=== PATIENT | female | born 1965 | race Caucasian/White ===

== ENCOUNTER → 2017-02-22 | Outpatient (CLI) | payer BC, OTHER ==
[~2017-02-22] MED LIST: IOPAMIDOL (ISOVUE-300) 100 ML BTL ONE
== END ==
LOC: FIMAGING 13:01
PROVIDERS: ATTEND Internal Medicine
DX: D18.09 Hemangioma of other sites (principal); K59.00 Constipation, unspecified; R93.8 Abnormal findings on diagnostic imaging of other specified body structures
CPT/HCPCS: G0202; Q9967

== ENCOUNTER → 2018-01-28 | Outpatient (CLI) | payer OTHER | LOC: FIMAGING 14:15 | PROVIDERS: ATTEND Internal Medicine | DX: Z13.820 Encounter for screening for osteoporosis (principal); M85.89 Other specified disorders of bone density and structure, multiple sites ==

== ENCOUNTER → 2018-01-30 | Outpatient (CLI) | payer OTHER | LOC: FIMAGING 14:45 | PROVIDERS: ATTEND Internal Medicine | DX: N63.11 Unspecified lump in the right breast, upper outer quadrant (principal) ==

== ENCOUNTER 2018-06-04 14:31 | Observation (INO) | payer OTHER ==
[2018-06-04] MEDS ORDERED: PROMETHAZINE HCL 25 MG/ML INJ IVP ONE (14:51)
[2018-06-04] MEDS ORDERED: NS 1,000 ML IV ONE ×3 (14:51→22:58)
[2018-06-04] MEDS ORDERED: DEXAMETHASONE 10 MG/ML VIAL IVP ONE (14:51)
[2018-06-04] MEDS ORDERED: KETOROLAC 15 MG/1 ML SDV IVP ONE (14:51)
--- NOTE | 2018-06-04 14:53 | EDPHY ---
H & P Stated Complaint: N/V migraine - Personal History LMP (Females 10-55): Post Menopausal Current Tetanus/Diphtheria Vaccine: Yes Tetanus Vaccine Date: < 10 years - Medical/Surgical History Hx Asthma: No Hx Chronic Respiratory Disease: No Hx Diabetes: No Hx Cardiac Disease: No Hx Renal Disease: No Hx Cirrhosis: No Hx Alcoholism: No Hx HIV/AIDS: No Hx Splenectomy or Spleen Trauma: No Other PMH: hypothyroid, abdominal sx as a baby with partial removal of intestines, kidney CA 2000. breast ca - Social History Smoking Status: Never smoked Time Seen by Provider: 06/04/18 14:40 HPI/ROS: Chief Complaint: Headache, nausea, vomiting HPI: 53-year-old woman who is approximately 1 week status post bilateral mastectomy with reconstruction for breast cancer. Patient is presenting with mild frontal headache with nausea and vomiting. She has not been able to keep any medications down. She denies any fevers or chills. She had a similar headache about a month ago. At that time she had a noncontrast MRI which showed an abnormal frontal lesion. She has since had an MRI at [facility] but has not yet received those results. On her prior visit she was 2 days status post receiving chemotherapy agent which she has not had since. Headache is an 8/10. No numbness or weakness. She has not been able to keep any medications down. She has not been taking narcotics for her mastectomies. She states her pain is well controlled at her surgical sites. No redness or abnormal drainage. ROS: 10 systems were reviewed and were negative except those elements noted in the HPI. PMH: Breast cancer, hypothyroidism, renal cell carcinoma Social History: No smoking, no alcohol, no recreational drug use Family History: non-contributory Physical Exam: Gen: Awake, Alert, No Distress HEENT: Nose: no rhinorrhea Eyes: PERRLA, EOMI Mouth: Moist mucosa Neck: Supple, no JVD Chest: Bilateral mastectomy sites are clean dry and intact. There is no erythema or warmth. ELYSIA drains are intact in draining appropriately., lungs clear to auscultation Heart: S1, S2 normal, no murmur Abd: Soft, non-tender, no guarding Back: no CVA tenderness, no midline tenderness Ext: no edema, non-tender Skin: no rash Neuro: CN II-XII intact, Sensation grossly intact, Strength 5/5 in bilateral upper and lower extremities (Osiel Shay) Constitutional: Initial Vital Signs Temperature (C) 36.7 C 06/04/18 14:34 Heart Rate 71 06/04/18 14:34 Respiratory Rate 18 06/04/18 14:34 Blood Pressure 143/106 H 06/04/18 14:34 O2 Sat (%) 96 06/04/18 14:34 O2 Delivery Mode Room Air Allergies/Adverse Reactions: No Known Allergies Allergy (Verified 06/04/18 14:36) Home Medications: Medication Instructions Recorded Levothyroxine [Synthroid 137 mcg 137 mcg PO DAILY06 11/05/15 (*)] Multivitamins [Multivitamin (*)] 1 each PO DAILY 05/05/18 Acetaminophen [Tylenol 325mg (*)] 650 mg PO Q4 PRN tab 05/06/18 Diazepam [Valium 5 MG (*)] 5 mg PO DAILY PRN 06/04/18 Eszopiclone [Lunesta] 3 mg PO HS 06/04/18 Ondansetron Odt [Zofran Odt 4 mg 4 mg PO Q4 PRN #6 tab 06/04/18 (*)] oxyCODONE IR [Oxycodone Ir (*)] 5 - 10 mg PO Q4HRS PRN 06/04/18 Medical Decision Making ED Course/Re-evaluation: 53-year-old woman with recent mastectomy is presenting with headache nausea vomiting. I have discussed with Dr. Reynolds, oncologist on-call for [facility]. She has reviewed the MRI. Lesion is a small less than 1 cm lesion which represents either demyelinating lesion or sequela vasculitis. Does not appear to be related to metastasis. She thinks her symptoms likely viral etiology does not feel there is acute neurological or postoperative complication I agree. Plan will be to continue to hydrate in give analgesia. Patient signed out to Dr. Miguel pending improvement in symptoms and discharge. ( Osiel Shay) 4pm: sleeping comfortably, will reassess. 5:00 p.m.-quite nauseated, continues to have a headache. Zofran IV given. Discussed with patient admission versus continued observation in the emergency department. Will admit the patient for observation, given prolonged vomiting and headache, unrelieved with medications so far. Multiple etiologies of recurrent headache considered. Given recent MRI's, repeat neuro imaging is not indicated. In addition, there is no evidence of meningitis, with no recent illness, normal white blood cell count and no leukocytosis. Lumbar puncture is not indicated. The hospitalist service was consulted for admission. (Mayela Miguel) Differential Diagnosis: Headache including but not limited to subarachnoid hemorrhage, migraine headache , tension headache and infectious causes such as meningitis, pharyngitis and sinusitis. (Mayela Miguel) - Data Points Laboratory Results: Laboratory Results 06/04/18 15:36 06/04/18 15:36 06/04/18 06/04/18 15:36 15:36 WBC 7.87 10^3/uL 10^3/uL (3.80-9.50) RBC 4.13 10^6/uL L 10^6/uL (4.18-5.33) Hgb 12.6 g/dL g/dL (12.6-16.3) Hct 37.1 % L % (38.0-47.0) MCV 89.8 fL fL (81.5-99.8) MCH 30.5 pg pg (27.9-34.1) MCHC 34.0 g/dL g/dL (32.4-36.7) RDW 12.0 % % (11.5-15.2) Plt Count 239 10^3/uL 10^3/uL (150-400) MPV 8.6 fL L fL (8.7-11.7) Neut % (Auto) 83.7 % H % (39.3-74.2) Lymph % (Auto) 8.3 % L % (15.0-45.0) [place] % (Auto) 4.2 % L % (4.5-13.0) Eos % (Auto) 2.9 % % (0.6-7.6) Baso % (Auto) 0.6 % % (0.3-1.7) Nucleat RBC Rel Count 0.0 % % (0.0-0.2) Absolute Neuts (auto) 6.59 10^3/uL H 10^3/uL (1.70-6.50) Absolute Lymphs (auto) 0.65 10^3/uL L 10^3/uL (1.00-3.00) Absolute Monos (auto) 0.33 10^3/uL 10^3/uL (0.30-0.80) Absolute Eos (auto) 0.23 10^3/uL 10^3/uL (0.03-0.40) Absolute Basos (auto) 0.05 10^3/uL 10^3/uL (0.02-0.10) Absolute Nucleated RBC 0.00 10^3/uL 10^3/uL (0-0.01) Immature Gran % 0.3 % % (0.0-1.1) Immature Gran # 0.02 10^3/uL 10^3/uL (0.00-0.10) Sodium 139 mEq/L mEq/L (135-145) Potassium 3.2 mEq/L L mEq/L (3.5-5.2) Chloride 105 mEq/L mEq/L (97-110) Carbon Dioxide 27 mEq/l mEq/l (22-31) Anion Gap 7 mEq/L mEq/L (6-14) BUN 13 mg/dL mg/dL (7-23) Creatinine 0.6 mg/dL mg/dL (0.6-1.0) Estimated GFR > 60 Glucose 108 mg/dL H mg/dL (70-100) Calcium 8.8 mg/dL mg/dL (8.5-10.4) Medications Given: Sodium Chloride (Ns) 1,000 mls @ 150 mls/hr IV CONT YEFRI Stop: 12/01/18 17:59 Last Admin: 06/04/18 20:11 Dose: 1,000 mls Ketorolac Tromethamine (Toradol) 30 mg IVP Q6HRS PRN PRN Reason: Pain, Moderate Stop: 06/09/18 19:49 Last Admin: 06/04/18 20:21 Dose: 30 mg Ondansetron HCl (Zofran) 4 mg IVP Q4HRS PRN PRN Reason: Nausea/Vomiting, Can't Take PO Stop: 12/01/18 17:49 Last Admin: 06/04/18 20:21 Dose: 4 mg Tramadol HCl (Ultram) 50 mg PO Q6HRS PRN PRN Reason: Pain, Moderate Able to Take PO Stop: 12/01/18 19:51 Last Admin: 06/04/18 20:21 Dose: 50 mg Zolpidem Tartrate (Ambien) 5 mg PO HS YEFRI Stop: 12/01/18 20:59 Last Admin: 06/04/18 21:04 Dose: Not Given Discontinued Medications Dexamethasone (Decadron Injection) 10 mg IVP EDNOW ONE Stop: 06/04/18 14:52 Last Admin: 06/04/18 15:08 Dose: 10 mg Diphenhydramine HCl (Benadryl Injection) 12.5 mg IVP EDNOW ONE Stop: 06/04/18 17:00 Last Admin: 06/04/18 20:33 Dose: Not Given Sodium Chloride (Ns) 1,000 mls @ 0 mls/hr IV ONCE ONE; Wide Open PRN Reason: Protocol Stop: 06/04/18 14:52 Last Admin: 06/04/18 15:07 Dose: 1,000 mls Sodium Chloride (Ns) 1,000 mls @ 0 mls/hr IV ONCE ONE; Wide Open PRN Reason: Protocol Stop: 06/04/18 17:36 Last Admin: 06/04/18 17:40 Dose: 1,000 mls Ketorolac Tromethamine (Toradol) 15 mg IVP EDNOW ONE Stop: 06/04/18 14:52 Last Admin: 06/04/18 15:08 Dose: 15 mg Metoclopramide HCl (Reglan Injection) 10 mg IVP EDNOW ONE Stop: 06/04/18 17:00 Last Admin: 06/04/18 20:33 Dose: Not Given Ondansetron HCl (Zofran) 4 mg IVP EDNOW ONE Stop: 06/04/18 17:36 Last Admin: 06/04/18 17:40 Dose: 4 mg Promethazine HCl (Phenergan) 12.5 mg IVP ONCE ONE Stop: 06/04/18 14:52 Last Admin: 06/04/18 15:08 Dose: 12.5 mg Departure - Departure Disposition: [facility] Acute Clinical Impression: Acute headache Qualifiers: Headache type: unspecified Intractability: not intractable Qualified Code(s): R51 - Headache Condition: Good
[2018-06-04 15:55] LABS: PLATELET COUNT 239 10^3/uL (150-400)
[2018-06-04] MEDS ORDERED: METOCLOPRAMIDE 10 MG/2 ML VIAL IVP ONE (16:59)
[2018-06-04] MEDS ORDERED: ONDANSETRON 4 MG/2 ML VIAL IVP ONE (17:35)
[2018-06-04] MEDS ORDERED: ONDANSETRON 4 MG/2 ML VIAL ONE (17:35)
[2018-06-04] MEDS ORDERED: ONDANSETRON 4 MG/2 ML VIAL IVP PRN (17:50)
[2018-06-04] MEDS ORDERED: ACETAMINOPHEN 325 MG TAB PO PRN (17:50)
[2018-06-04] MEDS ORDERED: PROMETHAZINE HCL 25 MG/ML INJ IVP PRN (17:50)
[2018-06-04] MEDS ORDERED: ONDANSETRON DISINTEGRATING 4 MG TAB PO PRN (17:50)
--- NOTE | 2018-06-04 18:15 | PDGENHP ---
History and Physical - Chief Complaint Headache, Nausea, vomiting - History of Present Illness 53 y/o female presents to the emergency room experiencing a migraine, nausea, and vomiting. She woke up this morning with the headache and since then, has not been able to keep any food or water down. Denies hematemesis. Denies chest pains, SOB, dysuria, diarrhea. She is s/p 1 week bilateral mastectomy. She reports experiencing similar symptoms one month ago and was admitted to the hospital. It was thought at the time to be related to her chemotherapy treatment. She does have history of recurrent SBOs but typically these feel very different from this as she will have abdominal distention and pain which are currently not present. Her last normal bowel movement was yesterday. A month prior, she had a head MRI which showed an abnormal frontal lesion. She had a recent repeat MRI at [facility]. Dr. Shay spoke to the on-call oncologist, Dr. Leon about the results which were: a lesion less than 1cm which represents either demyelinating lesion or sequela vasculitis. It does not appear to be r/t metastasis. Her symptoms could be viral etiology. She is being admitted for observation and supportive management. Past Medical/Surgical History 1. Recent bilateral mastectomy 2. Breast cancer 3. Left sided renal carcinoma, s/p partial nephrectomy 4. Hypothyroidism 5. IBS 6. Insomnia 7. 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 Denies alcohol or illicit drugs. No alcohol. Vital Signs 146/93 75 HR 15 Respirations 36.7c 93% RA History Information - Allergies/Home Medication List Allergies/Adverse Reactions: No Known Allergies Allergy (Verified 06/04/18 14:36) Home Medications: Levothyroxine [Synthroid 137 mcg (*)] 137 mcg PO DAILY06 11/05/15 [Last Taken ] Multivitamins [Multivitamin (*)] 1 each PO DAILY 05/05/18 [Last Taken 06/03/18] Diazepam [Valium 5 MG (*)] 5 mg PO DAILY PRN 06/04/18 [Last Taken 05/31/18] Eszopiclone [Lunesta] 3 mg PO HS 06/04/18 [Last Taken 06/03/18] oxyCODONE IR [Oxycodone Ir (*)] 5 - 10 mg PO Q4HRS PRN 06/04/18 [Last Taken ] I have personally reviewed and updated: family history, medical history, social history, surgical history Past Medical History: See HPI List - Surgical History Additional surgical history: See HPI list - Family History Additional family history: Hypertension, cataracts, breast cancer - Social History Smoking Status: Never smoked Alcohol Use: None Drug Use: None Review of Systems Review of Systems: ROS: 10pt was reviewed & negative except for what was stated in HPI & below Constitutional: Reports: malaise EENMT: Reports: no symptoms Cardiac: Reports: no symptoms Respiratory: Reports: no symptoms Gastrointestinal: Reports: vomitting, nausea Genitourinary: Reports: no symptoms Muscolosketal: Reports: no symptoms Skin: Reports: no symptoms Neurological: Reports: headache Hematologic/Lymphatic: Reports: no symptoms Immunologic/Allergy: Reports: no symptoms Physical Exam Physical Exam: Lab data reviewed Temp Pulse Resp BP Pulse Ox 36.7 C 75 15 146/93 H 93 06/04/18 14:34 06/04/18 17:45 06/04/18 17:45 06/04/18 17:45 06/04/18 17:45 Constitutional: uncomfortable, other (Pale-appearing female, uncomfortable) Eyes: PERRL, anicteric sclera, EOMI Ears, Nose, Mouth, Throat: hearing normal, ears appear normal, no oral mucosal ulcers, dry mucous membranes Cardiovascular: regular rate and rhythym, no murmur, rub, or gallop, No edema Peripheral Pulses: 2+: dorsalis-pedis (R) (Radial 2+), dorsalis-pedis (L) ( Radial 2+) Respiratory: no respiratory distress, no rales or rhonchi, clear to auscultation Gastrointestinal: normoactive bowel sounds, soft, non-tender abdomen, no palpable masses Genitourinary: no bladder fullness, no bladder tenderness Skin: warm, normal color, no rashes or abrasions, no fluctuance, no induration, No mottled Musculoskeletal: full muscle strength, no muscle tenderness, normal joint ROM, no joint effusions Neurologic: AAOx3, sensation intact bilaterally, CN II-XII Intact Psychiatric: interacting appropriately, not anxious, not encephalopathic, thought process linear Lymph, Heme, Immunologic: no cervical LAD, no supraclavicular LAD Lab Data & Imaging Review 06/04/18 15:36 06/04/18 15:36 WBC 7.87 10^3/uL (3.80-9.50) 06/04/18 15:36 RBC 4.13 10^6/uL (4.18-5.33) L 06/04/18 15:36 Hgb 12.6 g/dL (12.6-16.3) 06/04/18 15:36 Hct 37.1 % (38.0-47.0) L 06/04/18 15:36 MCV 89.8 fL (81.5-99.8) 06/04/18 15:36 MCH 30.5 pg (27.9-34.1) 06/04/18 15:36 MCHC 34.0 g/dL (32.4-36.7) 06/04/18 15:36 RDW 12.0 % (11.5-15.2) 06/04/18 15:36 Plt Count 239 10^3/uL (150-400) 06/04/18 15:36 MPV 8.6 fL (8.7-11.7) L 06/04/18 15:36 Neut % (Auto) 83.7 % (39.3-74.2) H 06/04/18 15:36 Lymph % (Auto) 8.3 % (15.0-45.0) L 06/04/18 15:36 [place] % (Auto) 4.2 % (4.5-13.0) L 06/04/18 15:36 Eos % (Auto) 2.9 % (0.6-7.6) 06/04/18 15:36 Baso % (Auto) 0.6 % (0.3-1.7) 06/04/18 15:36 Nucleat RBC Rel Count 0.0 % (0.0-0.2) 06/04/18 15:36 Absolute Neuts (auto) 6.59 10^3/uL (1.70-6.50) H 06/04/18 15:36 Absolute Lymphs (auto) 0.65 10^3/uL (1.00-3.00) L 06/04/18 15:36 Absolute Monos (auto) 0.33 10^3/uL (0.30-0.80) 06/04/18 15:36 Absolute Eos (auto) 0.23 10^3/uL (0.03-0.40) 06/04/18 15:36 Absolute Basos (auto) 0.05 10^3/uL (0.02-0.10) 06/04/18 15:36 Absolute Nucleated RBC 0.00 10^3/uL (0-0.01) 06/04/18 15:36 Immature Gran % 0.3 % (0.0-1.1) 06/04/18 15:36 Immature Gran # 0.02 10^3/uL (0.00-0.10) 06/04/18 15:36 Sodium 139 mEq/L (135-145) 06/04/18 15:36 Potassium 3.2 mEq/L (3.5-5.2) L 06/04/18 15:36 Chloride 105 mEq/L (97-110) 06/04/18 15:36 Carbon Dioxide 27 mEq/l (22-31) 06/04/18 15:36 Anion Gap 7 mEq/L (6-14) 06/04/18 15:36 BUN 13 mg/dL (7-23) 06/04/18 15:36 Creatinine 0.6 mg/dL (0.6-1.0) 06/04/18 15:36 Estimated GFR > 60 06/04/18 15:36 Glucose 108 mg/dL (70-100) H 06/04/18 15:36 Calcium 8.8 mg/dL (8.5-10.4) 06/04/18 15:36 Assessment & Plan Plan: 1. Acute headache: She had a similar headache a month ago. She had a non- contrast MRI at that time which revealed an abnormal frontal lesion. Since then , she had another MRI at [facility]. Dr. Shay spoke to [facility] oncologist on-call Dr. Reynolds re: MRI results. Lesion is less than 1cm representing either a demyelinating lesion or sequela vasculitis; it does not appear to be r/t metastasis. Most likely viral etiology. We will manage her migraine and her associated symptoms. In the ED, she received Decadron, Benadryl , Toradol, Reglan, and Phenergan. We will do supportive treatment. -Tylenol, Ultram, Toradol, Ativan PRN -Zofran/Phenergan PRN -IV NS 2. Hypokalemia: this is most likely d/t emesis. Potassium protocol initiated. 3. Bilateral mastectomy: currently experiencing no pain or discomfort. Followed at [facility]. Will need chemotherapy and radiation treatments but has not made appointments. Diet: NPO Code: Full VTE ppx: Lovenox, SCDs Dispo: Admit to obs
[2018-06-04] MEDS ORDERED: PROTOCOL POTASSIUM 1 DOSE MISC PRN (18:30)
--- NOTE | 2018-06-04 19:27 | HOSPPROG ---
Hospitalist Progress Note Assessment/Plan: I have personally seen and examined patient. I agree with the assessment and plan as outlined by PACherry, in a separate note. Objective: Vital Signs Temp Pulse Resp BP Pulse Ox 36.7 C 78 16 150/91 H 93 06/04/18 14:34 06/04/18 19:00 06/04/18 19:00 06/04/18 19:00 06/04/18 19:00 ICD10 Worksheet Patient Problems: Problems Problem Status Onset Acute headache Acute Abdominal pain Acute Chemotherapy induced nausea and vomiting Acute Intractable nausea and vomiting Acute Partial small bowel obstruction Acute Side effect of medication Acute
[2018-06-04] MEDS ORDERED: KETOROLAC 30 MG/1 ML SDV IVP PRN (19:50)
[2018-06-04] MEDS ORDERED: LORazepam 2 MG/ML INJ IVP PRN (19:51)
[2018-06-04] MEDS ORDERED: traMADol 50 MG TAB PO PRN (19:52)
[2018-06-04] MEDS: NS 1,000 ML IV SCH ×2 (20:08→20:11)
[2018-06-04] MEDS ORDERED: ZOLPIDEM TARTRATE 5 MG TAB PO SCH (21:00)
[2018-06-04] MEDS ORDERED: POTASSIUM CL 20 MEQ TAB PO ONE (22:32)
[2018-06-04] MEDS ORDERED: ACETAMINOPHEN 500 MG TAB PO ONE (22:58)
[2018-06-04] MEDS ORDERED: ACETAMINOPHEN 500 MG TAB ONE (23:02)
[2018-06-05] MEDS ORDERED: SUMAtriptan 50 MG TAB PO ONE (01:13)
[2018-06-05] MEDS: NS 1,000 ML IV SCH ×2 (01:14→01:26)
[2018-06-05] MEDS ORDERED: LEVOTHYROXINE 137 MCG TAB PO SCH (06:00)
[2018-06-05] MEDS ORDERED: ENOXAPARIN 40 MG/0.4 ML SYR SC SCH (09:00)
[2018-06-05] MEDS ORDERED: POTASSIUM CL 10 MEQ TAB PO ONE (11:26)
[2018-06-05 11:28] VITALS: BP 145/93
[2018-06-05] MEDS ORDERED: SUMAtriptan 5 MG/SPRAY SPRAY NS ONE (11:52)
[2018-06-05] MEDS ORDERED: SUMAtriptan 25 MG TAB PO ONE (11:52)
--- NOTE | 2018-06-05 12:02 | PDDCSUM ---
Discharge Summary Discharge Summary: Date of Admission: June 04, 2018 Date of Discharge: June 05, 2018 Discharge Diagnoses: Acute headache, resolved Breast cancer, status post bilateral mastectomy Anemia, mild/stable Admission Diagnoses: Acute headache Hypokalemia Bilateral mastectomy 1 week prior Hospital Course: Patient is a 53-year-old female who presented with a severe headache which had been several times in the past month. She describes it is a new headache that she wakes up with in the morning. The headache is associated with nausea and patient is unable to keep food or water down. She thought the headache was associated with her chemotherapy. Patient had gotten a MRI of her brain in the [place], where she is being treated for breast cancer, that appeared to rule out metastasis. Patient was given sumatriptan which resolved her headache. The next day the patient was feeling well and wanted to go home. She was given a prescription for zolmitriptan which is on her formulary. She was also recommended to try [id number] migraine medication containing could caffeine and acetaminophen if she experiences headache prodrome. Physical Exam: Gen - alert, in NAD. MSK: nl muscle tone/bulk. Neuro: CN II-XII grossly intact. Skin: no pallor. Condition: Stable. Discharged to: Home. Pertinent tests/labs/imaging: N/A. Medications: Please see med rec form. Resume home meds. New prescriptions: Ondansetron ODT 4 mg tablets, take 1 tablet sublingually every 4 hours as needed for nausea. Zolmitriptan 2.5-5 mg once daily as needed for headache. Instructions: 1) Headache: may try OTC Excedrin for migraine [place] as soon as it starts (earlier the better). 2) Recommend to take a daily magnesium oxide 400mg tablet. Check magnesium next time you get bloodwork done. 3) Return for worsening symptoms or any concerns. Seek medical attention for fever/ chills, pain not relieved by medication, nausea/ vomiting not relieved by medication, weakness, dizziness, shortness of breath, chest pain. Follow up: Ensure follow up with your oncology as scheduled for today 06/05/18, and please schedule follow up with your primary md within 1 week.
--- NOTE | 2018-06-05 12:15 | ASMTCMCOM ---
CM Note CM Note Notes: Patient admitted to obs via ED for c/o headache and nausea one week s/p mastectomy. Her migraine resolved with imitrex and she is now medically cleared for discharge to home. No needs identified at this time. CM available should needs arise. Plan: Dc to home. Date Signed: 06/05/2018 12:14 PM Electronically Signed By:Surekha Wood RN
== END 2018-06-05 13:41 | disposition home or self-care (01) ==
LOC: F1N 19:55
PROVIDERS: ADMIT Internal Medicine; ATTEND Internal Medicine
DX: R51 Headache (principal); R90.0 Intracranial space-occupying lesion found on diagnostic imaging of central nervous system; E86.0 Dehydration; R11.10 Vomiting, unspecified; D64.9 Anemia, unspecified; E03.9 Hypothyroidism, unspecified; C50.919 Malignant neoplasm of unspecified site of unspecified female breast; Z90.13 Acquired absence of bilateral breasts and nipples; Z85.528 Personal history of other malignant neoplasm of kidney; Z90.5 Acquired absence of kidney
CPT/HCPCS: 96361; 96374; 96375; 96376; 97161; 99285; G0378; J1100; J1200; J1650; J1885; J2405; J2550; J2765

== ENCOUNTER 2018-08-23 20:50 | Emergency (ER) | payer OTHER ==
[2018-08-23] MEDS ORDERED: NS 1,000 ML IV ONE ×2 (21:18→21:40)
[2018-08-23 21:28] LABS: PLATELET COUNT 237 10^3/uL (150-400)
--- NOTE | 2018-08-23 21:40 | EDPHY ---
H & P Stated Complaint: FEVER, LAST (IV) CHEMO LAST WEEK. HAS A PORT Time Seen by Provider: 08/23/18 21:40 HPI/ROS: HPI CHIEF COMPLAINT: Fever, on chemotherapy. HISTORY OF PRESENT ILLNESS: Patient is a 53-year-old female, she is currently being treated I [facility] for breast cancer, she is on chemotherapy, she presents emergency room with fever and a cough that started today. Cough is rather nonproductive. Her fever she noticed was 102 at home. She called her oncologist is referred to the emergency room. She denies any abdominal pain, diarrhea, vomiting. She states she does not feel too bad. Somewhat fatigued. Past Medical History: Breast cancer Past Surgical History: Bilateral mastectomy axonal ramón dissection., left chest port Social History: Denies drugs alcohol tobacco. Family History: Noncontributory ROS REVIEW OF SYSTEMS: 10 Systems were reviewed and negative with the exception of the elements mentioned in the history of present illness. Exam Constitutional triage nursing summary reviewed, vital signs reviewed, awake/ alert. Fever and tachycardic 39.4. Heart rate 104. Eyes normal conjunctivae and sclera, EOMI, PERRLA. HENT normal inspection, atraumatic, moist mucus membranes, no epistaxis, neck supple/ no meningismus, no raccoon eyes. Respiratory clear to auscultation bilaterally, normal breath sounds, no respiratory distress, no wheezing. Cardiovascular left chest port, tachycardia, regular rhythm, no murmur, no edema, distal pulses normal. Gastrointestinal soft, non-tender, no rebound, no guarding, normal bowel sounds, no distension, no pulsatile mass. Genitourinary no CVA tenderness. Musculoskeletal no midline vertebral tenderness, full range of motion, no calf swelling, no tenderness of extremities, no meningismus, good pulses, neurovascularly intact. Skin pink, warm, & dry, no rash, skin atraumatic. Neurologic awake, alert and oriented x 3, AAOx3, moves all 4 extremities equally, motor intact, sensory intact, CN II-XII intact, normal cerebellar, normal vision, normal speech. Psychiatric normal mood/affect. Heme/Lymph/Immune no lymphadenopathy. Differential Diagnosis: Includes but is not limited to in a particular order acute febrile illness, neutropenic fever, pneumonia, viral illness, influenza, dehydration Medical Decision Making: Plan for this patient IV establishment IV fluid bolus 2 L normal saline, check lactic acid, blood cultures, chest x-ray, influenza, urinalysis and re-evaluate. Re-evaluation: 2208: I spoke with Dr. Ribeiro, who is her oncologist at [facility], we discussed the case in detail. She is comfortable the patient going home. She will follow up with her tomorrow. She did not want antibiotics given. Influenza test pending. 12:54 a.m. I discussed this case with her oncologist once again about her urine she would like to follow up the urine culture she does not want to treat it. I have discussed this with the patient as well. I also offered her hospital admission for observation given fever however she has declined this. She does not want to be admitted. Her oncologist is fine with her going home. We discussed strict return precautions this includes worsening symptoms includes high fever, vomiting, not doing well. Family understands return emergency room including at bedside if any worsening symptoms. Source: Patient - Personal History LMP (Females 10-55): Post Menopausal Current Tetanus/Diphtheria Vaccine: Yes Current Tetanus Diphtheria and Acellular Pertussis (TDAP): Yes Tetanus Vaccine Date: < 10 years - Medical/Surgical History Hx Asthma: No Hx Chronic Respiratory Disease: No Hx Diabetes: No Hx Cardiac Disease: No Hx Renal Disease: No Hx Cirrhosis: No Hx Alcoholism: No Hx HIV/AIDS: No Hx Splenectomy or Spleen Trauma: No Other PMH: hypothyroid, abdominal sx as a baby with partial removal of intestines, kidney CA 2000, left partial nephrectomy. breast ca- bilateral mastectomy 05/28, IBS, SBO, L CHEST PORT - Social History Smoking Status: Never smoked Constitutional: Initial Vital Signs Temperature (C) 39.4 C H 08/23/18 20:54 Heart Rate 102 H 08/23/18 20:54 Respiratory Rate 18 08/23/18 20:54 Blood Pressure 119/97 H 08/23/18 20:54 O2 Sat (%) 97 08/23/18 20:54 O2 Delivery Mode Room Air Allergies/Adverse Reactions: No Known Allergies Allergy (Verified 06/04/18 14:36) Home Medications: Medication Instructions Recorded Levothyroxine [Synthroid 137 mcg 137 mcg PO DAILY06 11/05/15 (*)] Multivitamins [Multivitamin (*)] 1 each PO DAILY 05/05/18 Acetaminophen [Tylenol 325mg (*)] 650 mg PO Q4 PRN tab 05/06/18 Diazepam [Valium 5 MG (*)] 5 mg PO DAILY PRN 06/04/18 Eszopiclone [Lunesta] 3 mg PO HS 06/04/18 Ondansetron Odt [Zofran Odt 4 mg 4 mg PO Q4 PRN #6 tab 06/04/18 (*)] oxyCODONE IR [Oxycodone Ir (*)] 5 - 10 mg PO Q4HRS PRN 06/04/18 ZOLMItriptan [Zolmitriptan Odt] 2.5 - 5 mg PO ONCE PRN #10 06/05/18 tab.rapdis Lisinopril 5 mg PO 08/23/18 Neulasta 08/23/18 Medical Decision Making - Diagnostics Imaging Results: Imaging Impressions Chest X-Ray 08/23/18 21:46 Impression: Chest negative for acute abnormality with no fever source identified. - Data Points Laboratory Results: Laboratory Results 08/23/18 21:15 08/23/18 21:15 08/23/18 08/23/18 08/23/18 22:50 21:50 21:18 WBC RBC Hgb Hct MCV MCH MCHC RDW Plt Count MPV Neut % (Auto) Lymph % (Auto) Nye % (Auto) Eos % (Auto) Baso % (Auto) Nucleat RBC Rel Count Absolute Neuts (auto) Absolute Lymphs (auto) Absolute Monos (auto) Absolute Eos (auto) Absolute Basos (auto) Absolute Nucleated RBC Immature Gran % Seg Neutrophils % Band Neutrophils % Lymphocytes % Monocytes % Eosinophils % Basophils % Metamyelocytes % Myelocytes % Promyelocytes % Blast Cells % Immature Gran # Absolute Seg Neuts Absolute Band Neuts Absolute Lymphocytes Absolute Monocytes Absolute Eosinophils Absolute Basophils Absolute Metamyelocyte Absolute Myelocytes Absolute Promyelocytes Absolute Plasma Cells Nucleated RBCs Absolute Blast Cells Plasma Cells % Toxic Granulation Platelet Estimate Polychromasia Tear Drop Cells Schistocytes PT INR APTT VBG Lactic Acid 1.5 mmol/L mmol/L (0.7-2.1) Sodium Potassium Chloride Carbon Dioxide Anion Gap BUN Creatinine Estimated GFR Glucose Calcium Total Bilirubin Conjugated Bilirubin Unconjugated Bilirubin AST ALT Alkaline Phosphatase Total Protein Albumin Urine Color PALE YELLOW Urine Appearance CLEAR Urine pH 8.0 H (5.0-7.5) Ur Specific Stanton 1.006 (1.002-1.030) Urine Protein NEGATIVE (NEGATIVE) Urine Ketones NEGATIVE (NEGATIVE) Urine Blood 2+ H (NEGATIVE) Urine Nitrate NEGATIVE (NEGATIVE) Urine Bilirubin NEGATIVE (NEGATIVE) Urine Urobilinogen NEGATIVE EU EU (0.2-1.0) Ur Leukocyte Esterase TRACE H (NEGATIVE) Urine RBC 10-15 /hpf H /hpf (0-3) Urine WBC 1-3 /hpf /hpf (0-3) Ur Epithelial Cells TRACE /lpf /lpf (NONE-1+) Urine Bacteria 1+ /hpf H /hpf (NONE SEEN) Urine Glucose NEGATIVE (NEGATIVE) Nasal Influenza A PCR NEGATIVE FOR FLU A (NEGATIVE) Nasal Influenza B PCR NEGATIVE FOR FLU B (NEGATIVE) 08/23/18 08/23/18 08/23/18 21:15 21:15 21:15 WBC RBC Hgb Hct MCV MCH MCHC RDW Plt Count MPV Neut % (Auto) Lymph % (Auto) Nye % (Auto) Eos % (Auto) Baso % (Auto) Nucleat RBC Rel Count Absolute Neuts (auto) Absolute Lymphs (auto) Absolute Monos (auto) Absolute Eos (auto) Absolute Basos (auto) Absolute Nucleated RBC Immature Gran % Seg Neutrophils % Band Neutrophils % Lymphocytes % Monocytes % Eosinophils % Basophils % Metamyelocytes % Myelocytes % Promyelocytes % Blast Cells % Immature Gran # Absolute Seg Neuts Absolute Band Neuts Absolute Lymphocytes Absolute Monocytes Absolute Eosinophils Absolute Basophils Absolute Metamyelocyte Absolute Myelocytes Absolute Promyelocytes Absolute Plasma Cells Nucleated RBCs Absolute Blast Cells Plasma Cells % Toxic Granulation Platelet Estimate Polychromasia Tear Drop Cells Schistocytes PT 13.8 SEC SEC (12.0-15.0) INR 1.10 (0.83-1.16) APTT 26.1 SEC SEC (23.0-38.0) VBG Lactic Acid Sodium 137 mEq/L mEq/L (135-145) Potassium 3.6 mEq/L mEq/L (3.5-5.2) Chloride 103 mEq/L mEq/L (97-110) Carbon Dioxide 23 mEq/l mEq/l (22-31) Anion Gap 11 mEq/L mEq/L (6-14) BUN 11 mg/dL mg/dL (7-23) Creatinine 0.5 mg/dL L mg/dL (0.6-1.0) Estimated GFR > 60 Glucose 97 mg/dL mg/dL (70-100) Calcium 8.8 mg/dL mg/dL (8.5-10.4) Total Bilirubin 0.2 mg/dL mg/dL (0.1-1.4) Conjugated Bilirubin 0.1 mg/dL mg/dL (0.0-0.5) Unconjugated Bilirubin 0.1 mg/dL mg/dL (0.0-1.1) AST 19 IU/L IU/L (14-46) ALT 19 IU/L IU/L (9-52) Alkaline Phosphatase 114 IU/L IU/L (38-126) Total Protein 6.8 g/dL g/dL (6.3-8.2) Albumin 4.1 g/dL g/dL (3.5-5.0) Urine Color Urine Appearance Urine pH Ur Specific Stanton Urine Protein Urine Ketones Urine Blood Urine Nitrate Urine Bilirubin Urine Urobilinogen Ur Leukocyte Esterase Urine RBC Urine WBC Ur Epithelial Cells Urine Bacteria Urine Glucose Nasal Influenza A PCR Nasal Influenza B PCR 08/23/18 21:15 WBC 8.95 10^3/uL 10^3/uL (3.80-9.50) RBC 3.21 10^6/uL L 10^6/uL (4.18-5.33) Hgb 10.2 g/dL L g/dL (12.6-16.3) Hct 30.4 % L % (38.0-47.0) MCV 94.7 fL fL (81.5-99.8) MCH 31.8 pg pg (27.9-34.1) MCHC 33.6 g/dL g/dL (32.4-36.7) RDW 14.6 % % (11.5-15.2) Plt Count 237 10^3/uL 10^3/uL (150-400) MPV 8.8 fL fL (8.7-11.7) Neut % (Auto) Not Reported Lymph % (Auto) Not Reported Nye % (Auto) Not Reported Eos % (Auto) Not Reported Baso % (Auto) Not Reported Nucleat RBC Rel Count Not Reported Absolute Neuts (auto) Not Reported Absolute Lymphs (auto) Not Reported Absolute Monos (auto) Not Reported Absolute Eos (auto) Not Reported Absolute Basos (auto) Not Reported Absolute Nucleated RBC Not Reported Immature Gran % Not Reported Seg Neutrophils % 44.3 % % Band Neutrophils % 35.0 % % Lymphocytes % 7.2 % % Monocytes % 9.3 % % Eosinophils % 0.0 % % Basophils % 2.1 % % Metamyelocytes % 0.0 % % Myelocytes % 2.1 % % Promyelocytes % 0.0 % % Blast Cells % 0.0 % % Immature Gran # Not Reported Absolute Seg Neuts 3.96 10^3/uL 10^3/uL (1.70-6.50) Absolute Band Neuts 3.13 10^3/uL H 10^3/uL (0.00-0.70) Absolute Lymphocytes 0.64 10^3/uL L 10^3/uL (1.00-3.00) Absolute Monocytes 0.83 10^3/uL H 10^3/uL (0.30-0.80) Absolute Eosinophils 0.00 10^3/uL L 10^3/uL (0.03-0.40) Absolute Basophils 0.19 10^3/uL H 10^3/uL (0.02-0.10) Absolute Metamyelocyte 0.00 10^3/mL 10^3/mL (0.00-0.00) Absolute Myelocytes 0.19 10^3/mL H 10^3/mL (0.00-0.00) Absolute Promyelocytes 0.00 10^3/uL 10^3/uL (0.00-0.00) Absolute Plasma Cells 0.00 10^3/uL 10^3/uL (0.00-0.00) Nucleated RBCs 0 /100 WBC /100 WBC (0-0) Absolute Blast Cells 0.00 10^3/uL 10^3/uL (0.00-0.00) Plasma Cells % 0.0 % % Toxic Granulation PRESENT H Platelet Estimate ADEQUATE (ADEQ) Polychromasia 1+ H Tear Drop Cells 2+ H Schistocytes 1+ H PT INR APTT VBG Lactic Acid Sodium Potassium Chloride Carbon Dioxide Anion Gap BUN Creatinine Estimated GFR Glucose Calcium Total Bilirubin Conjugated Bilirubin Unconjugated Bilirubin AST ALT Alkaline Phosphatase Total Protein Albumin Urine Color Urine Appearance Urine pH Ur Specific Stanton Urine Protein Urine Ketones Urine Blood Urine Nitrate Urine Bilirubin Urine Urobilinogen Ur Leukocyte Esterase Urine RBC Urine WBC Ur Epithelial Cells Urine Bacteria Urine Glucose Nasal Influenza A PCR Nasal Influenza B PCR Medications Given: Discontinued Medications Acetaminophen (Tylenol) 1,000 mg PO EDNOW ONE Stop: 08/23/18 21:47 Last Admin: 08/23/18 21:58 Dose: 1,000 mg Sodium Chloride (Ns) 1,000 mls @ 0 mls/hr IV ONCE ONE; Wide Open PRN Reason: Protocol Stop: 08/23/18 21:19 Last Admin: 08/23/18 21:19 Dose: 1,000 mls Sodium Chloride (Ns) 1,000 mls @ 0 mls/hr IV EDNOW ONE; Wide Open PRN Reason: Protocol Stop: 08/23/18 21:41 Last Admin: 08/23/18 21:57 Dose: 1,000 mls Ibuprofen (Motrin) 800 mg PO EDNOW ONE Stop: 08/23/18 21:47 Last Admin: 08/23/18 21:58 Dose: 800 mg Departure - Departure Disposition: Home, Routine, Self-Care Clinical Impression: Fever, Dehydration Condition: Good Instructions: Dehydration (ED), Fever in Adults (ED) Additional Instructions: 1. Stay well-hydrated drink lots of fluids. 2. Alternate Tylenol and/or Motrin for fever control. 3. Return to the emergency room if he develops high fever, not doing well. 4. I have sent blood cultures see if you have bacteria in her blood these need to be followed up over the next 72 hr. 5. Additionally I have sent a urine culture please follow this up. 6. If you have worsening symptoms includes high fever, vomiting, chills, rigors , return to the emergency room. Referrals: Cassandra Steinberg MD [Primary Care Provider] - As per Instructions
[2018-08-23] MEDS ORDERED: IBUPROFEN 800 MG TAB PO ONE (21:46)
[2018-08-23] MEDS ORDERED: ACETAMINOPHEN 500 MG TAB PO ONE (21:46)
[2018-08-23 21:54] LABS: INR 1.1 (0.83-1.16); PROTIME(PATIENT) 13.8 SEC (12.0-15.0)
[2018-08-23 22:47] VITALS: BP 134/75
== END 2018-08-24 01:04 | disposition home or self-care (01) ==
DX: R50.9 Fever, unspecified (principal); E86.0 Dehydration; C50.919 Malignant neoplasm of unspecified site of unspecified female breast; Z79.899 Other long term (current) drug therapy